=== PATIENT | female | born 1985 | race Caucasian/White ===

== ENCOUNTER → 2018-03-06 | Outpatient (REF) | payer OTHER | LOC: M SFHCLERA 08:38 | DX: E66.09 Other obesity due to excess calories (principal); Z20.5 Contact with and (suspected) exposure to viral hepatitis ==

== ENCOUNTER → 2018-05-12 | Outpatient (REF) | payer OTHER ==
[2018-05-14 10:31] LABS: RUBELLA IgG QUALITATIVE IMMUNE (IMMUNE)
[2018-05-14 14:13] LABS: QuantiFERON-TB Gold Plus Negative (Negative)
[2018-05-14 14:13] LABS: RUBEOLA IgG ANTIBODY >300.0 AU/mL (Immune >29.9)
== END ==
LOC: M SFHCLERA 10:15
DX: Z01.84 Encounter for antibody response examination (principal); Z11.1 Encounter for screening for respiratory tuberculosis

== ENCOUNTER → 2019-05-30 | Outpatient (REF) | payer MEDICARE ==
[2019-05-30 18:53] LABS: ALBUMIN 3.5 GM/DL (3.2-5.2); ALT/SGPT 16 U/L (12-78); BILIRUBIN,TOTAL 0.2 MG/DL (0.2-1.0); BLOOD UREA NITROGEN 12 MG/DL (7-18); CALCIUM LEVEL 9.1 MG/DL (8.5-10.1); CARBON DIOXIDE LEVEL 25 MEQ/L (21-32); CHLORIDE LEVEL 108 MEQ/L (98-107); CHOLESTEROL LEVEL 271 MG/DL (<200); CREATININE FOR GFR 0.96 MG/DL (0.55-1.30); GLOMERULAR FILTRATION RATE > 60.0 (>60); GLUCOSE, FASTING 85 MG/DL (70-100); HDL CHOLESTEROL 50 MG/DL (>40); LDL CHOLESTEROL 163 MG/DL (<100); NON-HDL-C 221 MG/DL; SODIUM LEVEL 143 MEQ/L (136-145); TOTAL PROTEIN 7.5 GM/DL (6.4-8.2); TRIGLYCERIDES LEVEL 291 MG/DL (<150)
== END ==
LOC: M SFHCLERA 10:06
PROVIDERS: ATTEND Family Medicine
DX: Z00.00 Encounter for general adult medical examination without abnormal findings (principal)

== ENCOUNTER → 2021-06-22 | Outpatient (CLI) | payer OTHER ==
[2021-06-22 15:19] LABS: BLOOD UREA NITROGEN 20 MG/DL (7-18); CARBON DIOXIDE LEVEL 25 MEQ/L (21-32); CHLORIDE LEVEL 108 MEQ/L (98-107); CREATININE FOR GFR 0.94 MG/DL (0.55-1.30); GLOMERULAR FILTRATION RATE > 60.0 (>60); GLUCOSE, FASTING 89 MG/DL (70-100); SODIUM LEVEL 141 MEQ/L (136-145)
[2021-06-22 15:20] LABS: ALBUMIN 4.2 GM/DL (3.2-5.2); ALT/SGPT 23 U/L (12-78); BILIRUBIN,TOTAL 0.3 MG/DL (0.2-1.0); CALCIUM LEVEL 9.3 MG/DL (8.5-10.1); CHOLESTEROL LEVEL 243 MG/DL (<200); CHOLESTEROL RISK RATIO 5.062 (<5); HDL CHOLESTEROL 48 MG/DL (>40); LDL CHOLESTEROL 164 MG/DL (<100); NON-HDL-C 195 MG/DL; TOTAL PROTEIN 7.9 GM/DL (6.4-8.2); TRIGLYCERIDES LEVEL 156 MG/DL (<150)
== END ==
LOC: M WUC 11:08
PROVIDERS: ATTEND Student in an Organized Health Care Education/Training Program
DX: E66.01 Morbid (severe) obesity due to excess calories (principal)

== ENCOUNTER → 2022-04-19 | Outpatient (REF) | payer OTHER | LOC: M SFHCLERA 17:25 | PROVIDERS: ATTEND Student in an Organized Health Care Education/Training Program | DX: Z12.4 Encounter for screening for malignant neoplasm of cervix (principal) | CPT/HCPCS: 87624; G0123 ==

== ENCOUNTER → 2023-03-21 | Outpatient (CLI) | payer OTHER ==
[2023-03-21 11:16] LABS: BASO % 0.3 % (0.0-1.0); EOS # 0.1 10^3/uL (0.0-0.5); EOS % 1.1 % (0.0-3.0); HEMATOCRIT 40.8 % (36.0-47.0); HEMOGLOBIN 13.2 g/dl (12.0-15.5); LYMPH # 2.7 10^3/uL (1.5-5.0); LYMPH % 24.5 % (24.0-44.0); MEAN CORPUSCULAR HEMOGLOBIN 29.3 pg (27.0-33.0); MEAN CORPUSCULAR HGB CONC 32.4 g/dl (32.0-36.5); MEAN CORPUSCULAR VOLUME 90.5 fl (80.0-96.0); MONO # 0.4 10^3/uL (0.0-0.8); MONO % 3.8 % (2.0-8.0); NEUTROPHILS # 7.6 10^3/uL (1.5-8.5); NEUTROPHILS % 70.1 % (36.0-66.0); PLATELET COUNT, AUTOMATED 327 10^3/uL (150-450); RED BLOOD COUNT 4.51 10^6/uL (4.00-5.40); WHITE BLOOD COUNT 10.8 10^3/uL (4.0-10.0)
[2023-03-21 11:46] LABS: THYROID STIMULATING HORMONE 4.183 uIU/ML (0.55-4.78)
[2023-03-21 11:47] LABS: ALBUMIN 3.6 G/DL (3.2-5.2); ALKALINE PHOSPHATASE 62 U/L (46-116); ALT/SGPT 11 U/L (7.0-40); AST/SGOT 12 U/L (<34); BILIRUBIN,TOTAL 0.2 MG/DL (0.3-1.2); BLOOD UREA NITROGEN 15 MG/DL (9-23); CALCIUM LEVEL 8.8 MG/DL (8.5-10.1); CARBON DIOXIDE LEVEL 24 MMOL/L (20-31); CHLORIDE LEVEL 109 MMOL/L (98-107); CHOLESTEROL LEVEL 202 MG/DL (<200); CREATININE FOR GFR 0.81 MG/DL (0.55-1.30); FREE T4 0.87 NG/DL (0.89-1.76); GLOMERULAR FILTRATION RATE > 60.0 (>60); GLUCOSE, FASTING 78 MG/DL (60-100); HDL CHOLESTEROL 51.7 MG/DL (>40); LDL CHOLESTEROL 114.7 MG/DL (<100); NON-HDL-C 150.3 MG/DL; POTASSIUM SERUM 3.6 MMOL/L (3.5-5.1); SODIUM LEVEL 141 MMOL/L (136-145); TOTAL PROTEIN 7.1 G/DL (5.7-8.2); TRIGLYCERIDES LEVEL 178 MG/DL (<150)
[2023-03-21 11:48] LABS: TOTAL 25(OH) VITAMIN D 15.4 NG/ML (20.0-100.0)
== END ==
LOC: M WUC 08:38
PROVIDERS: ATTEND Physician Assistant
DX: Z00.00 Encounter for general adult medical examination without abnormal findings (principal)

== ENCOUNTER → 2024-05-18 | Outpatient (REF) | payer OTHER ==
[2024-05-18 17:31] LABS: ALKALINE PHOSPHATASE 74 U/L (35-104); ALT/SGPT 19 U/L (7.0-40); AST/SGOT 13 U/L (<34); BILIRUBIN,TOTAL 0.4 MG/DL (0.3-1.2); BLOOD UREA NITROGEN 15 MG/DL (9-23); CALCIUM LEVEL 9.9 MG/DL (8.5-10.1); CARBON DIOXIDE LEVEL 26 MMOL/L (20-31); CHLORIDE LEVEL 106 MMOL/L (98-107); CHOLESTEROL LEVEL 270 MG/DL (<200); CHOLESTEROL RISK RATIO 5.15 (<5); CREATININE FOR GFR 0.83 MG/DL (0.55-1.30); GLOMERULAR FILTRATION RATE > 60.0 (>60); GLUCOSE, FASTING 85 MG/DL (60-100); HDL CHOLESTEROL 52.4 MG/DL (>40); LDL CHOLESTEROL 189.2 MG/DL (<100); NON-HDL-C 217.6 MG/DL; SODIUM LEVEL 141 MMOL/L (136-145); TOTAL PROTEIN 7.7 G/DL (5.7-8.2); TRIGLYCERIDES LEVEL 142 MG/DL (<150)
[2024-05-18 17:33] LABS: THYROID STIMULATING HORMONE 2.687 uIU/ML (0.55-4.78); TOTAL 25(OH) VITAMIN D 8.6 NG/ML (20.0-100.0)
== END ==
LOC: M SFHCLERA 11:15
DX: F51.01 Primary insomnia (principal); Z76.89 Persons encountering health services in other specified circumstances; F41.9 Anxiety disorder, unspecified

== ENCOUNTER → 2024-09-11 | Outpatient (REF) | payer OTHER ==
[2024-09-11 15:33] LABS: ALBUMIN 4.1 G/DL (3.2-5.2); ALKALINE PHOSPHATASE 62 U/L (35-104); ALT/SGPT 16 U/L (7.0-40); AST/SGOT 16 U/L (<34); BILIRUBIN,TOTAL 0.5 MG/DL (0.3-1.2); BLOOD UREA NITROGEN 19 MG/DL (9-23); CALCIUM LEVEL 9.2 MG/DL (8.5-10.1); CARBON DIOXIDE LEVEL 25 MMOL/L (20-31); CHLORIDE LEVEL 104 MMOL/L (98-107); CREATININE FOR GFR 0.94 MG/DL (0.55-1.30); GLOMERULAR FILTRATION RATE > 60.0 (>60); GLUCOSE, FASTING 83 MG/DL (60-100); POTASSIUM SERUM 4.2 MMOL/L (3.5-5.1); SODIUM LEVEL 142 MMOL/L (136-145); TOTAL PROTEIN 7.2 G/DL (5.7-8.2)
== END ==
LOC: M SFHCLERA 14:24 → M LABWUC 14:24
DX: I10 Essential (primary) hypertension (principal)